=== PATIENT | male | born 1960 | race Caucasian/White ===

== ENCOUNTER 2019-12-29 07:08 | Outpatient (CLI) | payer BC, SELFPAY ==
--- NOTE | ~2019-12-29 | XR_ITS ---
EXAMINATION: XR chest 2V DATE: 12/29/2019 07:23 INDICATION: Cough TECHNIQUE: PA and lateral views of the chest were obtained. COMPARISON: Chest radiograph dated 12/16/2007 FINDINGS: Unchanged pattern of mild linear atelectasis/scarring at the lung bases. No new airspace opacities, p ulmonary edema, pleural effusion or pneumothorax. The cardiomediastinal silhouette is normal. Calcifi ed mediastinal lymph nodes consistent with old granulomatous disease. IMPRESSION: 1. Stable appearance of mild bibasilar atelectasis/scarring. No acute cardiopulmonary disease. Reviewed, dictated and finalized at location A. IMPRESSION: 1. Stable appearance of mild bibasilar atelectasis/scarring. No acute cardiopul monary disease.
== END 2019-12-29 07:09 | disposition home or self-care (01) ==
PROVIDERS: PCP Family Medicine; Visit Provider Nurse Practitioner Family
DX: R05 Cough (principal); R06.2 Wheezing; R91.8 Other nonspecific abnormal finding of lung field
CPT/HCPCS: 71046

== ENCOUNTER → 2021-04-03 07:31 | Outpatient (CLI) | payer BC, SELFPAY ==
--- NOTE | ~2021-04-03 | MR_ITS ---
EXAMINATION: MR shoulder LT wo con DATE: 04/03/2021 08:33 INDICATION: Left shoulder pain and limited range of motion TECHNIQUE: Magnetic resonance imaging (MRI) of the left shoulder was performed without intravenous co ntrast. Sequences included axial PD-weighted FS FSE, coronal oblique PD-weighted FS FSE, coronal obli que T2-weighted FS FSE, sagittal PD-weighted FS FSE, and sagittal T1-weighted SE. COMPARISON: Left shoulder radiographs dated 02/09/2021 FINDINGS: Coracoacromial arch: The acromion undersurface is curved in morphology (type II). The coracoacromial ligament is normal. M ild acromioclavicular osteoarthritis. Rotator cuff: Mild subscapularis, supraspinatus and infraspinatus tendinopathy. There are a couple very small small tears at the anterior and posterior margins of the superior facet footplate of the supraspinatus ten don. Both measure 2-3 mm AP and involving one third of the tendon thickness. It is unclear whether th rubina are articular sided or intrasubstance along the articular side of the tendon. The teres minor ten don is normal. Normal rotator cuff muscle bulk and signal. Biceps tendon, glenoid labrum and glenohumeral cartilage: Long head of the biceps tendon is normal. There is a tear at the 12:00-9:00 position of the posterior superior glenoid labrum. Glenohumeral cartilage is normal. Fluid: Physiologic amount of fluid in the glenohumeral joint and biceps tendon sheath. No loose osteochondra l bodies. No abnormal fluid signal in the subacromial/subdeltoid bursa to suggest bursitis. Bones: Low signal intensity bone island at the inferior neck the glenoid. No fracture or pathologic marrow r eplacing process. Minimal cystic change along the greater tuberosity. IMPRESSION: 1. Mild subscapularis, supraspinatus and infraspinatus tendinopathy with a couple very small mild tea rs at the anterior and posterior margins of the superior facet footplate of the supraspinatus tendon which either involve or lie along the articular side of the tendon. 2. Tear at the posterior superior glenoid labrum. 3. Mild acromioclavicular osteoarthritis. Reviewed, dictated and finalized at location A. IMPRESSION: 1. Mild subscapularis, supraspinatus and infraspinatus tendinopathy with a coup le very small mild tears at the anterior and posterior margins of the superior facet footplate of the supraspinatus tendon which either involve or lie along t he articular side of the tendon. 2. Tear at the posterior superior glenoid labrum. 3. Mild acromioclavicular osteoarthritis.
== END ==
PROVIDERS: PCP Family Medicine; Visit Provider Orthopaedic Surgery
DX: M19.012 Primary osteoarthritis, left shoulder (principal); S43.432D Superior glenoid labrum lesion of left shoulder, subsequent encounter; X58.XXXD Exposure to other specified factors, subsequent encounter
CPT/HCPCS: 73221

== ENCOUNTER 2022-08-03 00:43 | Day surgery (SDC) | payer BC, SELFPAY ==
[2022-07-17 15:01] VITALS: BMI 37.1
--- NOTE | 2022-08-02 11:14 | PM.HPGS ---
History of Present Illness History of Present Illness Consent: Risks, benefits, and alternatives have been discussed and questions answered. Patient agrees to proceed with procedure. Chief complaint: hx of colon polyps, neoplasm screening Narrative: Bobo Muro is a 62 year old male Here for colon cancer screening. 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 A thickened area in the descending colon was biopsied and only showed inflammatory changes. Review of Systems Review of Systems: All systems reviewed & are unremarkable except as noted in HPI and below PMFSH Past Medical History Medical History BMI 34.0-34.9,adult Essential (primary) hypertension Left rotator cuff tear Low testosterone Mixed hyperlipidemia Nontoxic thyroid nodule Psoriasis Social History Social History Years smoked: 10 Alcohol intake: current Substance use type: marijuana Other substance usage details: 2-3 x wkly Additional occupation/education comments: [employer] Gender identity (if verbalized by the patient): Male Meds Home Medications and Allergies Home Medications Medication Instructions Recorded Confirmed Type valacyclovir 1 gram tablet 1,000 mg PO Q12H cold sores #4 tabs 04/05/22 08/03/22 Rx (Valtrex) Allergies Allergy/AdvReac Type Severity Reaction Status Date / Time ceftriaxone Allergy Unknown Anxiety Verified 08/03/22 08:35 Exam Resp: Auscultation: clear to auscultation bilaterally Cardio: Rate: regular rate Rhythm: regular rhythm GI: GI Palp: Yes Soft to palpation and No Tenderness to palpation present (GI) Assessment and Plan Assessment and plan (1) Colon cancer screening: Code(s): Z12.11 - Encounter for screening for malignant neoplasm of colon Status: Acute Assessment and Plan: Colonoscopy with possible biopsy or polypectomy or cautery or injection of substances.
[2022-08-03 08:36] VITALS: BP 158/93; PULSE 76; RESP 21; TEMP 36.6; O2SAT 99
--- NOTE | 2022-08-03 08:36 | P.PNAN_ITS ---
Anes - Initial Pre Proc Eval Procedure: Operation Date: 08/03/22 10:00 Proposed Procedures p Screening Colonoscopy - Mehrdad Haro MD Date/Time: 08/03/22 08:36 Surgeon: Mehrdad Haro MD Pre Op Diagnosis: hx of colon polyps, neoplasm screening Patient Data Age: 62 Gender: M Height: 1.68 m Weight: 104.5 kg Allergies Allergy/AdvReac Type Severity Reaction Status Date / Time ceftriaxone Allergy Unknown Anxiety Verified 08/03/22 08:35 Home Medications Medication Instructions Recorded Confirmed Type valacyclovir 1 gram tablet 1,000 mg PO Q12H cold sores #4 tabs 04/05/22 08/03/22 Rx (Valtrex) Patient hx anesthesia problems: none Family hx anesthesia problems: none Results Review: All pre-operative results and documents have been reviewed as part of the pre-operative evaluation. [facility] Past Medical History Medical History (Updated 08/02/22 @ 11:14 by Mehrdad Haro MD) BMI 34.0-34.9,adult Essential (primary) hypertension Left rotator cuff tear Low testosterone Mixed hyperlipidemia Nontoxic thyroid nodule Psoriasis Social History Social History Years smoked: 10 Alcohol intake: current Substance use type: marijuana Other substance usage details: 2-3 x wkly Additional occupation/education comments: [employer] Gender identity (if verbalized by the patient): Male Anes - Eval Final PreProcedure Day of Procedure 08/03/22 08:36 Patient weight: obese Heart: regular rate and rhythm Lungs: clear to auscultation Airway: Mallampati scale class II Neurological: alert and oriented Last oral intake: >/= 8 hours ASA classification: II Emergent: no Anesthetic plan: proceed Anesthesia type and monitoring: general GIVS and standard monitoring Results Review: All pre-operative results and documents have been reviewed as part of the pre- operative evaluation. Informed Consent: The patient's anesthetic plan and its attendant risks and benefits were discussed with the patient/family/POA. Questions were solicited and answers provided to the satisfaction of the patient/family/POA.
[2022-08-03] MEDS: LACTATED RINGERS 1,000 ML 150 ML IV CONT (08:42)
[2022-08-03] MEDS: SIMETHICONE ORAL SUSPENSION 20 MG/0.3 ML 30 ML BOTTLE 0.6 ML IRRIGATION (09:09)
[2022-08-03 09:16] VITALS: BP 116/78; PULSE 76; RESP 18; O2SAT 95
[2022-08-03 09:26] VITALS: BP 121/82; PULSE 81; RESP 18; O2SAT 97
[2022-08-03 09:32] VITALS: BP 123/78; PULSE 67; RESP 18; O2SAT 96
== END 2022-08-03 09:40 | disposition home or self-care (01) ==
PROVIDERS: PCP Family Medicine; Visit Provider Internal Medicine Gastroenterology
PROC: 0DJD8ZZ Inspection of Lower Intestinal Tract, Via Natural or Artificial Opening Endoscopic (ICD-10-PCS; CPT 45378; principal; 2022-08-03 10:00)
DX: Z12.11 Encounter for screening for malignant neoplasm of colon (principal); K57.30 Diverticulosis of large intestine without perforation or abscess without bleeding; Z86.010 Personal history of colon polyps; F12.90 Cannabis use, unspecified, uncomplicated; E66.9 Obesity, unspecified; Z68.36 Body mass index [BMI] 36.0-36.9, adult
CPT/HCPCS: 45378; J2704; J7120

== ENCOUNTER 2024-12-25 13:18 | Outpatient (CLI) | payer BC, SELFPAY ==
--- NOTE | ~2024-12-25 | XR_ITS ---
XR chest 2V 12/25/2024 13:34 Indication: Right-sided chest pain for 5 months Procedure: 2 view chest Comparison: 12/29/2019 Findings: There is bibasilar atelectasis which appears chronic on the left. Heart size normal. No foc al pneumonia, edema or pneumothorax. No acute osseous abnormality. Heart size normal. Impression: 1: Bibasilar atelectasis. Reviewed, dictated and finalized at location B. Impression: 1: Bibasilar atelectasis.
--- OUTSIDE RECORDS SUMMARY | 2024-12-25 13:44 | XMS_ITS | Clinical Summary ---
Author Organization [facility] Address [address] [facility] [place] [address] Care Team Providers Care Farm Truck Driver Name Role Phone Joseph Kay MD Unavailable [phone] Dawson Sharp MD Primary Care Provider [phone] Source Comments [facility],non-owned Affiliates and Associated Physician Practices is amultiple site organization consisting of ambulatory clinics and hospital sitesin [place], [place], [place] and [place]. This disclosure is being madepursuant to the Care Everywhere program and may not contain all information available regarding this patient. Last updated 18.[facility] Allergies Active Allergy Reactions Criticality Noted Date Comments Ketorolac Vomiting 01/27/2019 Medications Be aware that medications may not be up to date on this document. Always verify current medications with the patient. No known medications Active Problems Problem Noted Date Diagnosed Date Primary osteoarthritis of one knee, right 2018 Social History Tobacco Use Types Packs/Day Years Used Date Smoking Tobacco: Never Smokeless Tobacco: Never Alcohol Use Standard Drinks/Week Comments Yes 15 (1 standard drink = 0.6 oz pu re alcohol) Sex and Gender Information Value Date Recorded Sex Assigned at Not on file Gender Identity Not on file Sexual Orientation Not on file Last Filed Vital Signs Vital Sign Reading Time Taken Comments Blood Pressure 160/85 01/28/2019 4:08 PM CDT Pulse 98 01/28/2019 4:08 PM CDT Temperature 36.9 C (98.4 F) 01/28/2019 4:08 PM CDT Respiratory Rate 16 01/28/2019 4:08 PM CDT Oxygen Saturation 96% 01/28/2019 4:08 PM CDT Inhaled Oxygen Concentration - - Weight 104.8 kg (231 lb) 02/25/2019 9:29 AM CDT Height 167.6 cm (5' 6 ) 02/25/2019 9:29 AM CDT Body Mass Index 37.28 02/25/2019 9:29 AM CDT Plan of Treatment Health Maintenance Due Date Last Done Comments COLOGUARD (AGES 45-75) - COL ON CA SCREENING 1960 COLON MONITORING 1960 COLONOSCOPY - COLON CA SCREENING 1960 CT COLONOGRAPHY - COLON CA SCREENING 1960 Colorectal Cancer Screening 1960 FIT - COLON CA SCREENING 1960 FLEX SIG - COLON CA SCREENING 1960 LIPID TESTING 1960 HIV SCREENING 01/23/1975 HEPATITIS C SCREENING 01/19/1978 DTAP/TDAP/TD VACCINES (1 - Tdap) 01/23/1979 PNEUMOCOCCAL VACCINE 50+ (1 of 1 - PCV) 01/23/2010 ZOSTER VACCINE (1 of 2) 01/23/2010 SCREENING FOR DIABETES 01/28/2022 9, 01/12/2019 COVID-19 VACCINE (1 - 2023-2 5 season) 2024 INFLUENZA VACCINE (#1) 2024 DEPRESSION SCREENING 10/07/2024 Respiratory Syncytial Virus (RSV) Vaccine Pt: or over 60 yrs (1 - 1-dose 75+ series) 01/23/2035 HEPATITIS B VACCINE Aged Out No longe r eligible based on patient's age to complete this topic HIB VACCINE Aged Out No longer eligi ble based on patient's age to complete this topic HPV VACCINE Aged Out No longer eligi ble based on patient's age to complete this topic MENINGOCOCCAL (Group B) VACCINE SHARED DECISION-MAKING Aged Out No longer eligible based on patient's age to complete this topic MENINGOCOCCAL GROUPS A/C/Y/W VACCINE Aged Out No longer eligible b ased on patient's age to complete this topic PNEUMOCOCCAL VACCINE Aged Out No long er eligible based on patient's age to complete this topic Medical Devices Implanted Type Area Biomedical Field Service Engineer Device Identifier Shelf Expiration Date Model / Serial / Lot Maxwell Bone Palacos R Hi-Visc Implanted:Qty: 2 on 01/26/2019 by Kerwin Fay MD at [facility] Right: Knee Heraeus Kulzer Jelenko 02/03/2022 [id number] / / [id number] [employer] Nonporous Tibial Baseplate Implanted:Qty: 1 on 01/26/2019 by Kerwin Fay MD at [facility] Right: Knee [employer] 12/09/2028 [id number] / / [id number] Cmpnt Ptlr Ovl [id number] Gns2 Uhmwpe Kn Implanted:Qty: 1 on 01/26/2019 by Kerwin Fay MD at [facility] Right: Knee [employer] 11/29/2028 [id number] / / [id number] [facility] Ii Femoral Component Implanted:Qty: 1 on 01/26/2019 by Kerwin Fay MD at [facility] Right: Knee [employer] 11/01/2028 [id number] / / [id number] Right Size 5-6 9mm Constrained Articular Insert Implanted:Qty: 1 on 01/26/2019 by Kerwin Fay MD at [facility] Right: Knee [employer] [id number] / / [id number] Explanted Type Area Biomedical Field Service Engineer Device Identifier Shelf Expiration Date Model / Serial / Lot Ns Vis Adpt Guide Jii Kit Rt Explanted:Qty: 1 on 01/26/2019 at [facility] Right: Knee [employer] 06/27/2019 [id number] / / [id number] Procedures Procedure Name Priority Date/Time Associated Diagnosis Comments BASIC METABOLIC PANEL (CALCIUM TOTAL) AM Draw 01/28/2019 7:06 AM CDT from Last 3 Months or Most Recently Relevant to Health Maintenance Results * BASIC METABOLIC PANEL (CALCIUM TOTAL) (01/28/2019 7:06 AM CDT) [facility] Glucose 100 74 - 106 mg/dL 01/28/2019 8:19 AM CDT [facility] Sodium 140 136 - 145 mmol/L 01/28/2019 8:19 AM CDT [facility] Potassium 4.3 3.5 - 5.1 mmol/L 01/28/2019 8:19 AM CDT [facility] Chloride 104 98 - 107 mmol/L 01/28/2019 8:19 AM CDT [facility] CO2 28 23 - 31 mmol/L 01/28/2019 8:19 AM CDT [facility] Calcium 9.3 8.4 - 10.2 mg/dL 01/28/2019 8:19 AM CDT [facility] Anion Gap 8 8 - 16 mmol/L 01/28/2019 8:19 AM CDT [facility] BUN 15 8.4 - 25.7 mg/dL 01/28/2019 8:19 AM CDT [facility] Creatinine 0.74 0.73 - 1.18 mg/dL 01/28/2019 8:19 AM CDT [facility] eGFR by MDRD >60 >60 mL/min/1.7 3m2 01/28/2019 8:19 AM CDT [facility] eGFR by MDRD >60 >60 mL/min/1.7 3m2 01/28/2019 8:19 AM CDT [facility] Blood BLOOD SPECIMEN / Unknown Lab Venipuncture / Unknown 01/28/2019 7:06 AM CDT 01/28/2019 7:46 AM CDT Kerwin Fay MD LAB - CHEMISTRY [facility] Organization Address City/State/ZIP Co de Phone Number [facility] [address] [place] [address] from Last 3 Months or Most Recently Relevant to Health Maintenance Advance Directives * Full Code (Latest Code Status on File) Date Activated Date Inactivated Comments 01/26/2019 10:57 AM 01/28/2019 7:39 PM Care Teams Farm Truck Driver Relationship Specialty Start Date End Date Dawson Sharp MD [address] [place] [phone] PCP - General Family Medicine 06/26/24 Joseph Kay MD [address] [place] [address] Dermatology 06/26/24
--- OUTSIDE RECORDS SUMMARY | 2024-12-25 13:44 | XMS_ITS | Encounter Summary ---
Author Organization [facility] Address [address] [facility] [address] [facility] [place] [address] Care Team Providers Care Club Director Name Role Phone Dawson Sharp MD Primary Care Provider [phone] Joseph Kay MD Unavailable [phone] Dawson Sharp MD Primary Care Provider [phone] Encounter Details Date Type Department Care Team (Late st Contact Info) Description 06/18/2024 Lab Requisition [facility] - DermPath Lab [address] [facility] [place] [phone] Joseph Kay MD [address] [place] [address] Social History Tobacco Use Types Packs/Day Years Used Date Smoking Tobacco: Never Smokeless Tobacco: Never Alcohol Use Standard Drinks/Week Comments Yes 15 (1 standard drink = 0.6 oz pu re alcohol) Sex and Gender Information Value Date Recorded Sex Assigned at Not on file Gender Identity Not on file Sexual Orientation Not on file documented as of this encounter Functional Status Functional Status Response Date of Assess ment Is person deaf or have serious hearing difficult y? No 01/26/2019 Is person blind or have serious difficulty seein g? No 01/26/2019 Does person have serious dif ficulty walking/climbing stairs? No 01/26/2019 Does person have difficulty dressing/bathing? No 01/26/2019 Does person have difficulty doing errands alone? No 01/26/2019 Cognitive Status Response Date of Assessm ent Does person have difficulty concentrating/remembering/making decisions? No 01/26/2019 documented as of this encounter Plan of Treatment Not on file documented as of this encounter Procedures Procedure Name Priority Date/Time Associated Diagnosis Comments DERMATOPATHOLOGY Routine 06/16/2024 12:0 0 AM CDT documented in this encounter Results * DERMATOPATHOLOGY (06/16/2024 12:00 AM CDT) Case Report Dermatopathology Report Case: [id number] Authorizing Provider: Joseph Kay MD Collected: 06/16/2024 12:00 AM Ordering Location: [facility] - Received: 06/18/2024 10:47 AM DermPath Lab Pathologist: Cyril Yates MD Specimen: Skin, right lateral brow 2:15 PM CDT DERMATOPATHOLOGY LABORATORY Final Diagnosis Specimen A. SKIN, right lateral brow: BASAL CELL CARCINOMA, NODULAR TYPE (C44.319) 2:15 PM CDT DERMATOPATHOLOGY LABORATORY Clinical History R/O BCC 2:15 PM CDT DERMATOPATHOLOGY LABORATORY Gross Description Specimen A: Received is one formalin filled container labeled with the patient's name and designated right lateral brow. The specimen consists of a shave biopsy measuring 9x8x2 mm. Jar 0. 2:15 PM CDT DERMATOPATHOLOGY LABORATORY Microscopic Description Specimen A. SKIN, right lateral brow: Within the dermis there are aggregates of basaloid cells with a high nuclear to cytoplasmic ratio and peripheral palisading. 2:15 PM CDT DERMATOPATHOLOGY LABORATORY Disclaimer An external and internal positive and negative controls are appropriate for the histochemical, immunohistochemical and immunofluorescence stain(s) in this case (if any), except where stated explicitly. The performance characteristics of the stain(s) cited in this report were developed and its performance characteristic determined by the Dermatopathology Laboratory at [facility], directed by Dr. Dario Yates. These tests need not be, and therefore are not, approved by the [place] Food and Drug Administration. The tests are used for clinical purposes. Billing Codes Specimen Charges Stain Charges 47957 1 2:15 PM CDT DERMATOPATHOLOGY LABORATORY Embedded Images 09/13/202 4 2:15 PM CDT DERMATOPATHOLOGY LABORATORY Pathology/Cytolog y TISSUE SPECIMEN FROM SKIN / Unknown 06/16/2024 06/18/2024 10:47 AM CDT Joseph Kay MD LAB - PATHOLOGY/CYTO LOGY ORDERABLES DERMATOPATHOLOGY LABORATORY [facility] - Department of Dermatology [facility] Medicine [address] [place] [address], [address] [phone] documented in this encounter Visit Diagnoses Not on filedocumented in this encounter Care Teams Club Director Relationship Specialty Start Date End Date Dawson Sharp MD [address] [place] [phone] PCP - General 08/11/18 06/25/24 Dawson Sharp MD [address] [place] [address] PCP - General Family Medicine 06/26/24 Joseph Kay MD [address] [place] [address] Dermatology 06/26/24 documented as of this encounter
== END 2024-12-25 13:19 | disposition home or self-care (01) ==
PROVIDERS: PCP Family Medicine; Visit Provider Nurse Practitioner Adult Health
DX: R07.89 Other chest pain (principal); R91.8 Other nonspecific abnormal finding of lung field
CPT/HCPCS: 71046

== ENCOUNTER 2025-02-04 07:38 | Outpatient (CLI) | payer MEDICARE, SELFPAY ==
--- NOTE | ~2025-02-04 | US_ITS ---
Limited Abdominal Sonogram: Real-time sonographic imaging of the right upper quadrant was performed. Clinical History: Right upper quadrant pain Findings: The liver appears echogenic, with no evidence of mass lesion or bile duct dilatation. Ther e is focal fatty sparing adjacent to the gallbladder fossa. Main portal vein demonstrates normal dire ction of flow. The gallbladder is partially distended, with echogenic shadowing gallstones. No gallbl adder wall thickening. The common bile duct measures 5 mm. The visualized pancreas, aorta, and IVC a re unremarkable. Right kidney unremarkable, measuring 10.8 cm in length. Impression: Diffuse fatty infiltration of the liver, with probable fatty sparing adjacent to gallbladder fossa. Cholelithiasis. Reviewed, dictated and finalized at location M. Impression: Diffuse fatty infiltration of the liver, with probable fatty sparing adjacent t o gallbladder fossa. Cholelithiasis.
--- OUTSIDE RECORDS SUMMARY | 2025-02-04 07:42 | XMS_ITS | Encounter Summary ---
Author Organization [facility] Address [address] [place] [address] Care Team Providers Care Hydramatic Specialist Name Role Phone Dawson Shapr MD Primary Care Provider [phone] Joseph Kay MD Unavailable [phone] Dwason Sharp MD Primary Care Provider [phone] Encounter Details Date Type Department Care Team (Late st Contact Info) Description 06/18/[address] [facility] - DermPath Lab [address] [facility] [place] [phone] Joseph Kay [place] [address] Social History Tobacco Use Types Packs/Day Years Used Date Smoking Tobacco: Never Smokeless Tobacco: Never Alcohol Use Standard Drinks/Week Comments Yes 15 (1 standard drink = 0.6 oz pu re alcohol) Sex and Gender Information Value Date Recorded Sex Assigned at Not on file Legal Sex Male 5:57 AM ICU MANAGER Gender Identity Not on file Sexual Orientation Not on file documented as of this encounter Functional Status * Is person deaf or have serious hearing difficulty? Answer Date of Assessment Author No 01/26/2019 11:02 AM Daljit Farr RN * Is person blind or have serious difficulty seeing? Answer Date of Assessment Author No 01/26/2019 11:02 AM Daljit Farr RN * Does person have serious difficulty walking/climbing stairs? Answer Date of Assessment Author No 01/26/2019 11:02 AM Daljit Farr RN * Does person have difficulty dressing/bathing? Answer Date of Assessment Author No 01/26/2019 11:02 AM COSMOT Daljit Vogel RN * Does person have difficulty doing errands alone? Answer Date of Assessment Author No 01/26/2019 11:02 AM COSMOT Daljit Vogel RN documented as of this encounter Mental Status * Does person have difficulty concentrating/remembering/making decisions? Answer Entry Date Author No 01/26/2019 11:02 AM COSMOT Daljit Vogel RN documented in this encounter Plan of Treatment Not on file documented as of this encounter Procedures Procedure Name Priority Date/Time Associated Diagnosis Comments DERMATOPATHOLOGY Routine 06/16/2024 12:0 0 AM CDT documented in this encounter Results * DERMATOPATHOLOGY (06/16/2024 12:00 AM CDT) Case Report Dermatopathology Report Case: [id number] Authorizing Provider: Joseph Kay MD Collected: 06/16/2024 12:00 AM Ordering Location: [facility] - Received: 06/18/2024 10:47 AM DermPath Lab Pathologist: Cyril Yates MD Specimen: Skin, right lateral brow 4 2:15 PM CDT DERMATOPATHOLOGY LABORATORY Final Diagnosis Specimen A. SKIN, right lateral brow: BASAL CELL CARCINOMA, NODULAR TYPE (C44.319) 4 2:15 PM T DERMATOPATHOLOGY LABORATORY Clinical History R/O BCC 4 2:15 PM CDT DERMATOPATHOLOGY LABORATORY Gross Description Specimen A: Received is one formalin filled container labeled with the patient's name and designated right lateral brow. The specimen consists of a shave biopsy measuring 9x8x2 mm. Jar 0. 4 2:15 PM CDT DERMATOPATHOLOGY LABORATORY Microscopic Description Specimen A. SKIN, right lateral brow: Within the dermis there are aggregates of basaloid cells with a high nuclear to cytoplasmic ratio and peripheral palisading. 4 2:15 PM CDT DERMATOPATHOLOGY LABORATORY Disclaimer An external and internal positive and negative controls are appropriate for the histochemical, immunohistochemical and immunofluorescence stain(s) in this case (if any), except where stated explicitly. The performance characteristics of the stain(s) cited in this report were developed and its performance characteristic determined by the Dermatopathology Laboratory at [facility], directed by Dr. Dario Yates. These tests need not be, and therefore are not, approved by the [place] Food and Drug Administration. The tests are used for clinical purposes. Billing Codes Specimen Charges Stain Charges 17595 1 4 2:15 PM CDT DERMATOPATHOLOGY LABORATORY Embedded Images 4 2:15 PM CDT DERMATOPATHOLOGY LABORATORY Pathology/Cytolog y TISSUE SPECIMEN FROM SKIN / Unknown 06/16/2024 06/18/2024 10:47 AM CDT Joseph Kay MD LAB - PATHOLOGY/CYTOLOGY ORD ERABLES Final Result DERMATOPATHOLOGY LABORATORY [facility] - Department of Dermatology [address] [phone] documented in this encounter Visit Diagnoses Not on filedocumented in this encounter Care Teams Hydramatic Specialist Relationship Specialty Start Date End Date Dawson Sharp MD [address] [place] [address] PCP - General 08/11/18 06/25/24 Dawson Sharp MD [address] [place] [phone] PCP - General Family Medicine 06/26/24 Joseph Kay MD [address] [place] [address] Dermatology 06/26/24 documented as of this encounter
--- OUTSIDE RECORDS SUMMARY | 2025-02-04 07:42 | XMS_ITS | Clinical Summary ---
Author Organization [facility] [employer] Address [address] [place] [address] Care Team Providers Care Topology Teacher Name Role Phone Joseph Kay MD Unavailable [phone] Dawson Sharp MD Primary Care Provider [phone] Source Comments [facility],non-owned Affiliates and Associated Physician Practices is amultiple site organization consisting of ambulatory clinics and hospital sitesin [place], [place], [place]. This disclosure is being madepursuant to the Care Everywhere program and may not contain all information available regarding this patient. Last updated 18.[facility] [employer] Allergies Active Allergy Reactions Criticality Noted Date Comments Ketorolac Vomiting 01/27/2019 Medications * Be aware that medications may not be up to date on this document. Alwaysverify current medications with the patient. 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 Gender Identity Not on file Sexual Orientation [...] VACCINE (1 - 2023-2 5 season) 2024 DEPRESSION SCREENING 10/07/2024 INFLUENZA VACCINE (Season Ended) 2025 Respiratory Syncytial Virus (RSV) Vaccine Pt: or [...] this topic Medical Devices Implanted Type Area Camouflage Specialist Device Identifier Shelf Expiration Date Model / Serial / Lot Maxwell Bone Palacos R Hi-Visc Implanted:Qty: 2 on 01/26/2019 by Kerwin Fay MD at [facility] Right: Knee Heraeus Kulzer Jelenko 02/03/2022 [id number] / / [id number] Jacintow[employer]ite[employer] Nonporous Tibial Baseplate Implanted:Qty: 1 on 01/26/2019 by Kerwin Fay MD at [facility] Right: Knee [employer] 12/09/2028 [id number] / / [id number] Cmpnt Ptlr Ovl [id number] Gns2 Uhmwpe Kn Implanted:Qty: 1 on 01/26/2019 by Kerwin Fay MD at [facility] Right: Knee [employer] 11/29/2028 [id number] / / [id number] [facility] Ii Femoral Component Implanted:Qty: 1 on 01/26/2019 by Kerwin Fay MD at [facility] Right: Knee [employer] 11/01/2028 [id number] / / [id number] Right Size 5-6 9mm Constrained Articular Insert Implanted:Qty: 1 on 01/26/2019 by Kerwin Fay MD at [facility] Right: Knee [employer] [id number] / / [id number] Explanted Type Area Camouflage Specialist Device Identifier Shelf Expiration Date Model / Serial / Lot Ns Vis Adpt Guide Jii Kit Rt Explanted:Qty: 1 on 01/26/2019 at [facility] Right: Knee [employer] 06/27/2019 [id number] / / [id number] Procedures Procedure Name Priority Date/Time Associated Diagnosis Comments BASIC METABOLIC PANEL (CALCIUM TOTAL) AM Draw 01/28/2019 7:06 AM CDT from Last 3 Months or Most Recently Relevant to Health Maintenance Results * BASIC METABOLIC PANEL (CALCIUM TOTAL) (01/28/2019 7:06 AM CDT) [facility] Glucose 100 74 - 106 mg/dL 01/28/2019 8:19 AM CDT [facility] Sodium 140 136 - 145 mmol/L 01/28/2019 8:19 AM CDT [facility] Potassium 4.3 3.5 - 5.1 mmol/L 01/28/2019 8:19 AM CDT [facility] Chloride 104 98 - 107 mmol/L 01/28/2019 8:19 AM CDT [facility] CO2 28 23 - 31 mmol/L 01/28/2019 8:19 AM CDT [facility] Calcium 9.3 8.4 - 10.2 mg/dL 01/28/2019 8:19 AM CDT [facility] Anion Gap 8 8 - 16 mmol/L 01/28/2019 8:19 AM CDT [facility] BUN 15 8.4 - 25.7 mg/dL 01/28/2019 8:19 AM CDT [facility] Creatinine 0.74 0.73 - 1.18 mg/dL 01/28/2019 8:19 AM CDT [facility] eGFR by MDRD >60 >60 mL/min/1.7 3m2 01/28/2019 8:19 AM T [facility] eGFR by MDRD >60 >60 mL/min/1.7 3m2 01/28/2019 8:19 AM T [facility] Blood BLOOD SPECIMEN / Unknown Lab Venipuncture / Unknown 01/28/2019 7:06 AM CDT 01/28/2019 7:46 AM CDT Kerwin Fay MD LAB - CHEMISTRY ORDERABLES Pamela petersen Result [facility] [address] [place] [address] from Last 3 Months or Most Recently Relevant to Health Maintenance Insurance ANTH Advance Directives * Full Code (Latest Code Status on File) Date Activated Date Inactivated Comments 01/26/2019 10:57 AM 01/28/2019 7:39 PM Care Teams Topology Teacher Relationship Specialty Start Date End Date Dawson Sharp MD [address] [place] [address] PCP - General Family Medicine 06/26/24 Joseph Kay MD [address] [place], [place] [id number] Dermatology 06/26/24
== END 2025-02-04 07:39 | disposition home or self-care (01) ==
PROVIDERS: PCP Family Medicine; Visit Provider Nurse Practitioner Adult Health
DX: K76.0 Fatty (change of) liver, not elsewhere classified (principal); K80.20 Calculus of gallbladder without cholecystitis without obstruction
CPT/HCPCS: 76705

== ENCOUNTER 2025-03-02 08:53 | Outpatient (CLI) | payer MEDICARE, SELFPAY ==
--- NOTE | ~2025-03-02 | NM_ITS ---
EXAMINATION: NM hepatobiliary wo pharm DATE: 03/02/2025 09:55 INDICATION: Unspecified abdominal pain COMPARISON: None. TECHNIQUE: 5.0 mCi Tc-99m mebrofenin (Choletec) was administered intravenously. Scintigraphic images of the abdomen were obtained for one hour. FINDINGS: There is normal clearance of radiotracer from the blood pool. There is homogeneous tracer u ptake by the liver. Activity progresses to the bowel and gallbladder. IMPRESSION: 1. Normal hepatobiliary scan. Reviewed, dictated and finalized at location A.
--- OUTSIDE RECORDS SUMMARY | 2025-03-02 08:56 | XMS_ITS | Clinical Summary ---
Author Organization [facility] [employer] Address [address] [place] [address] Care Team Providers Care Inspector Eyeglass Frames Name Role Phone Joseph Kay MD Unavailable Dawson Sharp MD Primary Care Provider [phone] Source Comments [facility],non-owned Affiliates and Associated Physician Practices is amultiple site organization consisting of ambulatory clinics and hospital sitesin [place], [place], [place] and [place]. This disclosure is being madepursuant to the Care Everywhere program and may not contain all information available regarding this patient. 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 Gender Identity Not on file Sexual Orientation [...] this topic Medical Devices Implanted Type Area Mine Utility Operator Device Identifier Shelf Expiration Date Model / Serial / Lot Maxwell Bone Palacos R Hi-Visc Implanted:Qty: 2 on 01/26/2019 by Kerwin Fay MD at [facility] Right: Knee Heraeus Kulzer Jelenko 02/03/2022 [id number] / / [id number] [employer] Nonporous Tibial Baseplate Implanted:Qty: 1 on 01/26/2019 by Kerwin Fay MD at [facility] Right: Knee [employer] 12/09/2028 [id number] / / [id number] Cmpnt Ptlr Ovl [id number] Gns2 Uhmwpe Kn Implanted:Qty: 1 on 01/26/2019 by Kerwin Fay MD at [facility] Right: Knee [employer] 11/29/2028 [id number] / / [id number] [facility] Ii Femoral Component Implanted:Qty: 1 on 01/26/2019 by Kerwin Fay MD at [facility] Right: Knee [employer] 11/01/2028 [id number] / / [id number] Right Size 5-6 9mm Constrained Articular Insert Implanted:Qty: 1 on 01/26/2019 by Kerwin Fay MD at [facility] Right: Knee [employer] [id number] / / [id number] Explanted Type Area Mine Utility Operator Device Identifier Shelf Expiration Date Model / Serial / Lot Ns Vis Adpt Guide Jii Kit Rt Explanted:Qty: 1 on 01/26/2019 at [facility] Right: Knee [employer] 06/27/2019 [id number] / / [id number] Procedures Procedure Name Priority Date/Time Associated Diagnosis Comments BASIC METABOLIC PANEL (CALCIUM TOTAL) AM Draw 01/28/2019 7:06 AM CDT from Last 3 Months or Most Recently Relevant to Health Maintenance Results * BASIC METABOLIC PANEL (CALCIUM TOTAL) (01/28/2019 7:06 AM CDT) [facility] Glucose 100 74 - 106 mg/dL 01/28/2019 8:19 AM CDT [facility] Sodium 140 136 - 145 mmol/L 01/28/2019 8:19 AM CDT [facility] Potassium 4.3 3.5 - 5.1 mmol/L 01/28/2019 8:19 AM CDT [facility] Chloride 104 98 - 107 mmol/L 01/28/2019 8:19 AM CDT [facility] CO2 28 23 - 31 mmol/L 01/28/2019 8:19 AM CDT [facility] Calcium 9.3 8.4 - 10.2 mg/dL 01/28/2019 8:19 AM CDT [facility] Anion Gap 8 8 - 16 mmol/L 01/28/2019 8:19 AM CDT [facility] BUN 15 8.4 - 25.7 mg/dL 01/28/2019 8:19 AM CDT [facility] Creatinine 0.74 0.73 - 1.18 mg/dL 01/28/2019 8:19 AM CDT [facility] eGFR by MDRD >60 >60 mL/min/1.7 3m2 01/28/2019 8:19 AM T [facility] eGFR by MDRD >60 >60 mL/min/1.7 3m2 01/28/2019 8:19 AM T [facility] Blood BLOOD SPECIMEN / Unknown Lab Venipuncture / Unknown 01/28/2019 7:06 AM CDT 01/28/2019 7:46 AM CDT Kerwin Fay MD LAB - CHEMISTRY ORDERABLES Pamela petersen Result [facility] [address] [place] [address] from Last 3 Months or Most Recently Relevant to Health Maintenance Insurance ANTH Advance Directives * Full Code (Latest Code Status on File) Date Activated Date Inactivated Comments 01/26/2019 10:57 AM 01/28/2019 7:39 PM Care Teams Inspector Eyeglass Frames Relationship Specialty Start Date End Date Dawson Sharp MD [address] [place] [address] PCP - General Family Medicine 06/26/24 Joseph Kay MD [address] [place], [place] [id number] Dermatology 06/26/24
--- OUTSIDE RECORDS SUMMARY | 2025-03-02 08:56 | XMS_ITS | Encounter Summary ---
Author Organization [facility] Address [address] [facility] [place] [address] Care Team Providers Care Rn House Supervisor Name Role Phone Dawson Sharp MD Primary Care Provider [phone] Joseph Kay MD Unavailable [phone] Dawson Sharp MD Primary Care Provider [phone] Encounter Details Date Type Department Care Team (Late st Contact Info) Description 06/18/2024 Lab Requisition [facility] - DermPath Lab [address] [place] [id number] Joseph [place] [address] Social History Tobacco Use Types Packs/Day Years Used Date Smoking Tobacco: Never Smokeless Tobacco: Never Alcohol Use Standard Drinks/Week Comments Yes 15 (1 standard drink = 0.6 oz pu re alcohol) Sex and Gender Information Value Date Recorded Sex Assigned at Not on file 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 SKIN, right lateral brow: BASAL CELL CARCINOMA, NODULAR TYPE (C44.319) 4 2:15 PM CDT DERMATOPATHOLOGY LABORATORY at 1415 CDT Clinical History R/O BCC 4 2:15 PM [...] characteristic determined by the Dermatopathology Laboratory at [facility], directed by Dr. Dario Yates. These tests need not be, and therefore are not, approved by the [place] Food and Drug Administration. The tests are used for clinical purposes. Billing Codes Specimen Charges Stain Charges 95386 1 4 2:15 PM CDT DERMATOPATHOLOGY LABORATORY Embedded Images 4 2:15 PM CDT [facility] Pathology/Cytolog y TISSUE SPECIMEN FROM SKIN / Unknown 06/16/2024 06/18/2024 10:47 AM CDT Joseph Kay MD LAB - PATHOLOGY/CYTOLOGY ORD ERABLES Final Result DERMATOPATHOLOGY LABORATORY [facility] - Department of Dermatology [address] [phone] documented in this encounter Visit Diagnoses Not on filedocumented in this encounter Care Teams Rn House Supervisor Relationship Specialty Start Date End Date Dawson Sharp MD [address] [place] [address] PCP - General 08/11/18 06/25/24 Dawson Sharp MD [address] [place] [id number] PCP - General Family Medicine 06/26/24 Joseph Kay MD [address] [place] [place] [address] Dermatology 06/26/24 documented as of this encounter
== END 2025-03-02 08:54 | disposition home or self-care (01) ==
PROVIDERS: PCP Family Medicine; Visit Provider Surgery
DX: R10.9 Unspecified abdominal pain (principal); K80.20 Calculus of gallbladder without cholecystitis without obstruction; K76.0 Fatty (change of) liver, not elsewhere classified
CPT/HCPCS: 78226; A9537

== ENCOUNTER 2025-03-05 09:59 | Outpatient (CLI) | payer MEDICARE, SELFPAY ==
--- NOTE | ~2025-03-05 | CT_ITS ---
Clinical Indication: Abdominal pain CT Scan of the Chest and Abdomen with Contrast: Technique: Contiguous sections were acquired throughout the chest and abdomen after intravenous admin istration of 100 cc of Omnipaque 350. Dose reduction technique was used on this scan by utilizing au tomated exposure control and iterative reconstruction technique. The dose-length product (DLP) was 12 82.43 mGy-cm. Findings: There is no evidence of any significant mediastinal, hilar or axillary lymphadenopathy. The mediastin al soft tissues appear normal. There is no evidence of pleural or pericardial effusion. The lungs are clear. No pulmonary nodules or infiltrates are noted. There is diffuse hepatic steatosis. Cholelithiasis present. The spleen, pancreas, adrenals and kidney s are within normal limits. No evidence of aortic aneurysm. No lymphadenopathy. Visualized bowel loops are unremarkable. No ascites. Impression: Cholelithiasis. Diffuse hepatic steatosis. No abnormality seen in the chest. Reviewed, dictated and finalized at [facility]. Impression: Cholelithiasis. Diffuse hepatic steatosis. No abnormality seen in the chest.
--- OUTSIDE RECORDS SUMMARY | 2025-03-05 10:13 | XMS_ITS | Clinical Summary ---
Author Organization [facility] [employer] Address [address] [place] [address] Care Team Providers Care Threader Name Role Phone Joseph Kay MD Unavailable [phone] Dawson Sharp MD Primary Care Provider [phone] Source Comments [facility],non-owned Affiliates and Associated Physician Practices is amultiple site organization consisting of ambulatory clinics and hospital sitesin [place], [place], [place] and [place]. This disclosure is being madepursuant to the Care Everywhere program and may not contain all information available regarding this patient. 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 Gender Identity Not on file Sexual Orientation [...] 9:29 AM CDT Height 167.6 cm (5' 6) 02/25/2019 9:29 AM CDT Body Mass Index [...] this topic Medical Devices Implanted Type Area Table Setter Device Identifier Shelf Expiration Date Model / Serial / Lot Maxwell Bone Palacos R Hi-Visc Implanted:Qty: 2 on 01/26/2019 by Kerwin Fay MD at [facility] Right: Knee Heraeus Kulzer Jelenko 02/03/2022 [id number] / / [id number] Jacintopercival Nonporous Tibial Baseplate Implanted:Qty: 1 on 01/26/2019 by Kerwin Fay MD at [facility] Right: Knee [employer] 12/09/2028 [id number] / / [id number] Cmpnt Ptlr Ovl [id number] Gns2 Uhmwpe Kn Implanted:Qty: 1 on 01/26/2019 by Kerwin Fay MD at [facility] Right: Knee [employer] 11/29/2028 [id number] / / [id number] [facility] Ii Femoral Component Implanted:Qty: 1 on 01/26/2019 by Kerwin Fay MD at [facility] Right: Knee [employer] 11/01/2028 [id number] / / [id number] Right Size 5-6 9mm Constrained Articular Insert Implanted:Qty: 1 on 01/26/2019 by Kerwin Fay MD at [facility] Right: Knee [employer] [id number] / / [id number] Explanted Type Area Table Setter Device Identifier Shelf Expiration Date Model / Serial / Lot Ns Vis Adpt Guide Jii Kit Rt Explanted:Qty: 1 on 01/26/2019 at [facility] Right: Knee [employer] 06/27/2019 [id number] / / [id number] Procedures Procedure Name Priority Date/Time Associated Diagnosis Comments BASIC METABOLIC PANEL (CALCIUM TOTAL) AM Draw 01/28/2019 7:06 AM CDT from Last 3 Months or Most Recently Relevant to Health Maintenance Results * BASIC METABOLIC PANEL (CALCIUM TOTAL) (01/28/2019 7:06 AM CDT) [facility] Glucose 100 74 - 106 mg/dL 01/28/2019 8:19 AM CDT [facility] Sodium 140 136 - 145 mmol/L 01/28/2019 8:19 AM CDT [facility] Potassium 4.3 3.5 - 5.1 mmol/L 01/28/2019 8:19 AM CDT [facility] Chloride 104 98 - 107 mmol/L 01/28/2019 8:19 AM CDT [facility] CO2 28 23 - 31 mmol/L 01/28/2019 8:19 AM CDT [facility] Calcium 9.3 8.4 - 10.2 mg/dL 01/28/2019 8:19 AM CDT [facility] Anion Gap 8 8 - 16 mmol/L 01/28/2019 8:19 AM CDT [facility] BUN 15 8.4 - 25.7 mg/dL 01/28/2019 8:19 AM CDT [facility] Creatinine 0.74 0.73 - 1.18 mg/dL 01/28/2019 8:19 AM CDT [facility] eGFR by MDRD >60 >60 mL/min/1.7 3m2 01/28/2019 8:19 AM T [facility] eGFR by MDRD >60 >60 mL/min/1.7 3m2 01/28/2019 8:19 AM T [facility] Blood BLOOD SPECIMEN / Unknown Lab Venipuncture / Unknown 01/28/2019 7:06 AM CDT 01/28/2019 7:46 AM CDT Kerwin Fay MD LAB - CHEMISTRY ORDERABLES Pamela petersen Result [facility] [address] [place] [address] from Last 3 Months or Most Recently Relevant to Health Maintenance Insurance ANTH Advance Directives * Full Code (Latest Code Status on File) Date Activated Date Inactivated Comments 01/26/2019 10:57 AM 01/28/2019 7:39 PM Care Teams Threader Relationship Specialty Start Date End Date Dawson Sharp MD [address] [place] [address] PCP - General Family Medicine 06/26/24 Joseph Kay MD [address] [place], [place] [phone] Dermatology 06/26/24
--- OUTSIDE RECORDS SUMMARY | 2025-03-05 10:13 | XMS_ITS | Encounter Summary ---
Author Organization [facility] Address [address] [facility] [place] [address] Care Team Providers Care Data Integrity Analyst Name Role Phone Dawson Sharp MD Primary Care Provider [phone] Joseph Kay MD Unavailable [phone] Dawson Sharp MD Primary Care Provider [phone] Encounter Details Date Type Department Care Team (Late st Contact Info) Description 06/18/2024 Lab Requisition [facility] - DermPath Lab [address] [facility] [place] [phone] Joseph Kay [place] [address] Social History Tobacco Use Types Packs/Day Years Used Date Smoking Tobacco: Never Smokeless Tobacco: Never Alcohol Use Standard Drinks/Week Comments Yes 15 (1 standard drink = 0.6 oz pu re alcohol) Sex and Gender Information Value Date Recorded Sex Assigned at Not on file 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 Dario Yates. These tests need not be, and therefore are not, approved by the [place] Food and Drug Administration. The tests are used for clinical purposes. Billing Codes Specimen Charges Stain Charges 12131 1 4 2:15 PM CDT DERMATOPATHOLOGY LABORATORY Embedded Images 4 2:15 PM CDT DERMATOPATHOLOGY LABORATORY Pathology/Cytolog y TISSUE SPECIMEN FROM SKIN / Unknown 06/16/2024 06/18/2024 10:47 AM CDT Joseph Kay MD LAB - PATHOLOGY/CYTOLOGY ORD ERABLES Final Result DERMATOPATHOLOGY LABORATORY [facility] - Department of Dermatology [address] [phone] documented in this encounter Visit Diagnoses Not on filedocumented in this encounter Care Teams Data Integrity Analyst Relationship Specialty Start Date End Date Dawson Sharp MD [address] [place] [address] PCP - General 08/11/18 06/25/24 Dawson Sharp MD [address] [place] [address] PCP - General Family Medicine 06/26/24 Joseph Kay MD [address] [place] [address] Dermatology 06/26/24 documented as of this encounter
[2025-03-05 10:26] LABS: Estimated Glomerular Filt Rate > 60
== END 2025-03-05 10:00 | disposition home or self-care (01) ==
PROVIDERS: PCP Family Medicine; Visit Provider Surgery
DX: R10.11 Right upper quadrant pain (principal); R07.89 Other chest pain; K80.20 Calculus of gallbladder without cholecystitis without obstruction; K76.0 Fatty (change of) liver, not elsewhere classified
CPT/HCPCS: 71260; 74160; Q9967

== ENCOUNTER 2025-04-07 06:39 | Outpatient (CLI) | payer MEDICARE, SELFPAY ==
--- NOTE | ~2025-04-07 | XR_ITS ---
Thoracic spine: Clinical Indication: Pain AP and lateral views were performed. No fracture is seen. There is normal alignment of the vertebrae. The intervertebral disc spaces appe ar normal. Paravertebral soft tissues appear normal. Impression: No significant abnormalities noted. Reviewed, dictated and finalized at [facility]. Impression: No significant abnormalities noted.
--- NOTE | ~2025-04-07 | XR_ITS ---
XR ribs RT 2V w CXR 2V Ordering provider: Yuko Flowers APRN History: . R10.9 - Unspecified abdominal pain . Comparison: December 25, 2024 FINDINGS: BONES: Highly suggestive fracture of the right ninth rib. MEDIASTINUM: The cardiac silhouette is not enlarged. Slightly prominent left hilum. LUNGS: No infiltrates, effusions or pneumothorax. OTHER: No free air under the diaphragm. Degenerative changes of the spine. IMPRESSION: 1. Highly suggestive fracture in the right ninth rib. 2. No acute cardiopulmonary findings. Reviewed, dictated and finalized at location A.
--- OUTSIDE RECORDS SUMMARY | 2025-04-07 06:42 | XMS_ITS | Clinical Summary ---
Author Organization [facility] Address [address] [place] [address] Care Team Providers Care Vacuum Cleaner Assembler Name Role Phone Joseph Kay MD Unavailable [phone] Dawson Sharp MD Primary Care Provider [phone] [facility],non-owned Affiliates and Associated Physician Practices is amultiple site organization consisting of ambulatory clinics and hospital sitesin [place], [place], [place] and [place]. This disclosure is being madepursuant to the Care Everywhere program and may not contain all information available regarding this patient. 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 Gender Identity Not on file Sexual Orientation [...] this topic Medical Devices Implanted Type Area Qualified Craft Worker Electrician Device Identifier Shelf Expiration Date Model / Serial / Lot Maxwell Bone Palacos R Hi-Visc Implanted:Qty: 2 on 01/26/2019 by Kerwin Fay MD at [facility][note 3] Right: Knee Heraeus Kulzer Jelenko 02/03/2022 [id number] / / [id number] [employer]into[employer] Nonporous Tibial Baseplate Implanted:Qty: 1 on 01/26/2019 by Kerwin Fay MD at [facility][note 3] Right: Knee [employer] 12/09/2028 [id number] / / [id number] Cmpnt Ptlr Ovl [id number] Gns2 Uhmwpe Kn Implanted:Qty: 1 on 01/26/2019 by Kerwin Fay MD at [facility][note 3] Right: Knee [employer] 11/29/2028 [id number] / / [id number] [facility] Ii Femoral Component Implanted:Qty: 1 on 01/26/2019 by Kerwin Fay MD at [facility][note 3] Right: Knee [employer] 11/01/2028 [id number] / / [id number] Right Size 5-6 9mm Constrained Articular Insert Implanted:Qty: 1 on 01/26/2019 by Kerwin Fay MD at [facility][note 3] Right: Knee [employer] [id number] / / [id number] Explanted Type Area Qualified Craft Worker Electrician Device Identifier Shelf Expiration Date Model / Serial / Lot Ns Vis Adpt Guide Jii Kit Rt Explanted:Qty: 1 on 01/26/2019 at [facility][note 3] Right: Knee [employer] 06/27/2019 [id number] / / [id number] Procedures Procedure Name Priority Date/Time Associated Diagnosis Comments BASIC METABOLIC PANEL (CALCIUM TOTAL) AM Draw 01/28/2019 7:06 AM CDT from Last 3 Months or Most Recently Relevant to Health Maintenance Results * BASIC METABOLIC PANEL (CALCIUM TOTAL) (01/28/2019 7:06 AM CDT) [facility] Glucose 100 74 - 106 mg/dL 01/28/2019 8:19 AM CDT [facility] Sodium 140 136 - 145 mmol/L 01/28/2019 8:19 AM CDT [facility] Potassium 4.3 3.5 - 5.1 mmol/L 01/28/2019 8:19 AM CDT [facility] Chloride 104 98 - 107 mmol/L 01/28/2019 8:19 AM CDT [facility] CO2 28 23 - 31 mmol/L 01/28/2019 8:19 AM CDT [facility] Calcium 9.3 8.4 - 10.2 mg/dL 01/28/2019 8:19 AM CDT [facility] Anion Gap 8 8 - 16 mmol/L 01/28/2019 8:19 AM CDT [facility] BUN 15 8.4 - 25.7 mg/dL 01/28/2019 8:19 AM CDT [facility] Creatinine 0.74 0.73 - 1.18 mg/dL 01/28/2019 8:19 AM CDT [facility] eGFR by MDRD >60 >60 mL/min/1.7 3m2 01/28/2019 8:19 AM T [facility] eGFR by MDRD >60 >60 mL/min/1.7 3m2 01/28/2019 8:19 AM T [facility] Blood BLOOD SPECIMEN / Unknown Lab Venipuncture / Unknown 01/28/2019 7:06 AM CDT 01/28/2019 7:46 AM CDT Kerwin Fay MD LAB - CHEMISTRY ORDERABLES Pamela petersen Result [facility] [address] [place] [address] from Last 3 Months or Most Recently Relevant to Health Maintenance Insurance ANTH Advance Directives * Full Code (Latest Code Status on File) Date Activated Date Inactivated Comments 01/26/2019 10:57 AM 01/28/2019 7:39 PM Care Teams Vacuum Cleaner Assembler Relationship Specialty Start Date End Date Dawson Sharp MD [address] [place] [address] PCP - General Family Medicine 06/26/24 Joseph Kay MD [address] [place], [place] [id number] Dermatology 06/26/24
--- OUTSIDE RECORDS SUMMARY | 2025-04-07 06:42 | XMS_ITS | Encounter Summary ---
Author Organization [facility] Address [address] [place] [address] Care Team Providers Care Accreditation Coordinator Name Role Phone Dawson Sharp MD Primary Care Provider [phone] Joseph Kay MD Unavailable [phone] Dawson Sharp MD Primary Care Provider [phone] Encounter Details Date Type Department Care Team (Late st Contact Info) Description 06/18/2024 Lab Requisition [facility] - DermPath Lab [address] [place] [id number] [place] [address] [place] [address] Social History Tobacco Use Types Packs/Day Years Used Date Smoking Tobacco: Never Smokeless Tobacco: Never Alcohol Use Standard Drinks/Week Comments Yes 15 (1 standard drink = 0.6 oz pu re alcohol) Sex and Gender Information Value Date Recorded Sex Assigned at Not on file 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 Dario Yates. These tests need not be, and therefore are not, approved by the [place] Food and Drug Administration. The tests are used for clinical purposes. Billing Codes Specimen Charges Stain Charges 03044 1 4 2:15 PM CDT [facility] Embedded Images 4 2:15 PM CDT [facility] Pathology/Cytolog y TISSUE SPECIMEN FROM SKIN / Unknown 06/16/2024 06/18/2024 10:47 AM CDT Joseph Kay MD LAB - PATHOLOGY/CYTOLOGY ORD ERABLES Final Result [facility]OPATHOLOGY [facility] - Department of Dermatology [address] [phone] documented in this encounter Visit Diagnoses Not on filedocumented in this encounter Care Teams Accreditation Coordinator Relationship Specialty Start Date End Date Dawson Sharp MD [address] [place] [address] PCP - General 08/11/18 06/25/24 Dawson Sharp MD [address] [place] [id number] PCP - General Family Medicine 06/26/24 Joseph Kay MD [address] [place] [address] Dermatology 06/26/24 documented as of this encounter
== END 2025-04-07 06:40 | disposition home or self-care (01) ==
PROVIDERS: PCP Family Medicine; Visit Provider Nurse Practitioner Adult Health
DX: R10.9 Unspecified abdominal pain (principal)
CPT/HCPCS: 71046; 71100; 72072